=== PATIENT | male | born 1995 | race Caucasian/White ===

== ENCOUNTER 2017-10-21 06:57 | Emergency (ER) | payer OTHER ==
[~2017-10-21] VITALS: Ht 177.8 cm; Wt 65.8 kg
[2017-10-21] MEDS ORDERED: NS(*) 0.9% 1000 ML BAG 1,000 ML IV ONE ×3 (07:06→08:45)
[2017-10-21] MEDS ORDERED: ONDANSETRON 4 MG/2 ML VIAL IVP ONE ×2 (07:10→08:35)
--- NOTE | 2017-10-21 07:10 | ER Report ---
History and Physical Time Seen By MD: 07:07 Hx. of Stated Complaint: pt reports vomiting and diarrhea since 0230 this morning HPI/ROS CHIEF COMPLAINT: Nausea vomiting reported hematemesis HISTORY OF PRESENT ILLNESS: Patient is an otherwise healthy 22-year-old male comes emergency Department today after multiple episodes of vomiting he says had some blood-tinged vomit started about 2 and a 3 hours prior to presentation he said he a couple episodes of loose stool and he stated that the stool was dark. Patient states he was skiing all day yesterday had some abdominal discomfort while skiing patient also states that he had a few cocktails last night which was New 's Meghann but did not drink excessive amounts. Patient states his pain is localized to the GI tract epigastric area primarily no past medical history pain is sharp stabbing localized to the epigastric area without radiation. REVIEW OF SYSTEMS: Respiratory: No cough, no dyspnea. Cardiovascular: No chest pain, no palpitations. Gastrointestinal: Vomiting diarrhea abdominal pain Musculoskeletal: No back pain. Remainder of the 14 system rev: Yes Allergies: Coded Allergies: Penicillins (Verified Allergy, Intermediate, 10/21/17) erythromycin base (Verified Allergy, Intermediate, 10/21/17) Uncoded Allergies: cefizil (Allergy, Unknown, 10/21/17) Home Meds No Active Prescriptions or Reported Meds Reviewed Nurses Notes: Yes Old Medical Records Reviewed: Yes Constitutional Vital Sign - Last 24 Hours 10/21/17 10/21/17 10/21/17 10/21/17 07:01 07:02 07:27 07:30 Temp 98.0 Pulse 86 92 Resp 14 B/P (MAP) 122/65 (84) 122/65 119/82 (94) Pulse Ox 96 O2 Delivery Room Air 10/21/17 10/21/17 10/21/17 10/21/17 07:37 07:47 07:57 08:00 Pulse 91 88 95 B/P (MAP) 129/69 (89) Pulse Ox 100 100 96 10/21/17 10/21/17 10/21/17 10/21/17 08:10 08:30 08:35 08:40 Pulse 95 96 96 109 B/P (MAP) 142/76 (98) Pulse Ox 98 96 93 99 Intake and Output 10/21/17 10/21/17 10/22/17 15:00 23:00 07:00 Intake Total 3000 ml Balance 3000 ml Physical Exam General Appearance: The patient is alert, has no immediate need for airway protection and no current signs of toxicity. [ ] Eyes: Pupils equal and round no injection. Respiratory: Chest is non tender, lungs are clear to auscultation. Cardiac: regular rate and rhythm [ ] Gastrointestinal: Bowel examination pain to palpation of the epigastrium otherwise all other quadrants without any pain or discomfort no rebound guarding or masses normal bowel sounds no percussive tenderness in the CVA area Musculoskeletal: Neck: Neck is supple and non tender. Extremities have full range of motion and are non tender. Skin: No rashes or lesions. [ ] DIFFERENTIAL DIAGNOSIS: After history and physical exam differential diagnosis was considered for enteritis gastroenteritis gastritis Medical Decision Making Data Points Result Diagram: 10/21/17 0720 10/21/17 0720 Laboratory Hematology Test 10/21/17 07:10 10/21/17 07:20 10/21/17 07:30 Urine Color Yana Urine Clarity Slightly-cloudy Urine pH 5.0 pH (4.8-9.5) Urine Specific [place] 1.033 Urine Protein Negative mg/dL (NEGATIVE) Urine Glucose (UA) Negative mg/dL (NEGATIVE) Urine Ketones 20 mg/dL (NEGATIVE) Urine Blood Negative (NEGATIVE) Urine Nitrite Negative (NEGATIVE) Urine Bilirubin Negative (NEGATIVE) Urine Urobilinogen Negative mg/dL (0.2-1.9) Urine Leukocyte Esterase Negative (NEGATIVE) Urine RBC <1 /HPF (0-2/HPF) Urine WBC 2 /HPF (0-5/HPF) Urine Squamous Epithelial Cells Few /LPF (</=FEW) Urine Bacteria Negative /HPF (NONE-FEW) Urine Mucus Few /HPF (NONE-FEW) Red Blood Count 6.31 M/uL (4.00-5.60) Mean Corpuscular Volume 87.8 fL (80.0-96.0) Mean Corpuscular Hemoglobin 30.4 pg (26.0-33.0) Mean Corpuscular Hemoglobin Concent 34.6 g/dL (32.0-36.0) Red Cell Distribution Width 12.8 % (11.5-14.5) Mean Platelet Volume 8.4 fL (7.2-11.1) Neutrophils (%) (Auto) 89.7 % (39.4-72.5) Lymphocytes (%) (Auto) 2.7 % (17.6-49.6) Monocytes (%) (Auto) 7.0 % (4.1-12.4) Eosinophils (%) (Auto) 0.3 % (0.4-6.7) Basophils (%) (Auto) 0.3 % (0.3-1.4) Nucleated RBC Relative Count (auto) 0.1 /100WBC Neutrophils # (Auto) 12.1 K/uL (2.0-7.4) Lymphocytes # (Auto) 0.4 K/uL (1.3-3.6) Monocytes # (Auto) 0.9 K/uL (0.3-1.0) Eosinophils # (Auto) 0.0 K/uL (0.0-0.5) Basophils # (Auto) 0.0 K/uL (0.0-0.1) Nucleated RBC Absolute Count (auto) 0.02 K/uL Sodium Level 139 mmol/L (137-145) Potassium Level 3.7 mmol/L (3.5-5.0) Chloride Level 99 mmol/L (98-107) Carbon Dioxide Level 21 mmol/L (22-30) Blood Urea Nitrogen 20 mg/dl (9-21) Creatinine 1.00 mg/dl (0.66-1.25) Glomerular Filtration Rate Calc > 60.0 Random Glucose 178 mg/dl (75-110) Calcium Level 10.7 mg/dl (8.4-10.2) Total Bilirubin 1.9 mg/dl (0.2-1.3) Aspartate Amino Transf (AST/SGOT) 34 U/L (0-35) Alanine Aminotransferase (ALT/SGPT) 35 U/L (0-56) Alkaline Phosphatase 88 U/L (0-126) Total Protein 8.8 gm/dl (6.3-8.2) Albumin 5.4 g/dl (3.5-5.0) Lipase 86 U/L (23-300) Serum Alcohol < 10 mg/dl Stool Occult Blood (IFOB) Positive (NEGATIVE) Stool Leukocytes, Qualitative Positive Chemistry Test 10/21/17 07:10 10/21/17 07:20 10/21/17 07:30 Urine Color Yana Urine Clarity Slightly-cloudy Urine pH 5.0 pH (4.8-9.5) Urine Specific [place] 1.033 Urine Protein Negative mg/dL (NEGATIVE) Urine Glucose (UA) Negative mg/dL (NEGATIVE) Urine Ketones 20 mg/dL (NEGATIVE) Urine Blood Negative (NEGATIVE) Urine Nitrite Negative (NEGATIVE) Urine Bilirubin Negative (NEGATIVE) Urine Urobilinogen Negative mg/dL (0.2-1.9) Urine Leukocyte Esterase Negative (NEGATIVE) Urine RBC <1 /HPF (0-2/HPF) Urine WBC 2 /HPF (0-5/HPF) Urine Squamous Epithelial Cells Few /LPF (</=FEW) Urine Bacteria Negative /HPF (NONE-FEW) Urine Mucus Few /HPF (NONE-FEW) White Blood Count 13.5 k/uL (4.5-11.0) Red Blood Count 6.31 M/uL (4.00-5.60) Hemoglobin 19.2 g/dL (14.0-18.0) Hematocrit 55.4 % (42.0-52.0) Mean Corpuscular Volume 87.8 fL (80.0-96.0) Mean Corpuscular Hemoglobin 30.4 pg (26.0-33.0) Mean Corpuscular Hemoglobin Concent 34.6 g/dL (32.0-36.0) Red Cell Distribution Width 12.8 % (11.5-14.5) Platelet Count 271 K/uL (150-450) Mean Platelet Volume 8.4 fL (7.2-11.1) Neutrophils (%) (Auto) 89.7 % (39.4-72.5) Lymphocytes (%) (Auto) 2.7 % (17.6-49.6) Monocytes (%) (Auto) 7.0 % (4.1-12.4) Eosinophils (%) (Auto) 0.3 % (0.4-6.7) Basophils (%) (Auto) 0.3 % (0.3-1.4) Nucleated RBC Relative Count (auto) 0.1 /100WBC Neutrophils # (Auto) 12.1 K/uL (2.0-7.4) Lymphocytes # (Auto) 0.4 K/uL (1.3-3.6) Monocytes # (Auto) 0.9 K/uL (0.3-1.0) Eosinophils # (Auto) 0.0 K/uL (0.0-0.5) Basophils # (Auto) 0.0 K/uL (0.0-0.1) Nucleated RBC Absolute Count (auto) 0.02 K/uL Glomerular Filtration Rate Calc > 60.0 Calcium Level 10.7 mg/dl (8.4-10.2) Total Bilirubin 1.9 mg/dl (0.2-1.3) Aspartate Amino Transf (AST/SGOT) 34 U/L (0-35) Alanine Aminotransferase (ALT/SGPT) 35 U/L (0-56) Alkaline Phosphatase 88 U/L (0-126) Total Protein 8.8 gm/dl (6.3-8.2) Albumin 5.4 g/dl (3.5-5.0) Lipase 86 U/L (23-300) Serum Alcohol < 10 mg/dl Stool Occult Blood (IFOB) Positive (NEGATIVE) Stool Leukocytes, Qualitative Positive Toxicology Test 10/21/17 07:20 Serum Alcohol < 10 mg/dl Urinalysis Test 10/21/17 07:10 Urine Color Yana Urine Clarity Slightly-cloudy Urine pH 5.0 pH (4.8-9.5) Urine Specific [place] 1.033 Urine Protein Negative mg/dL (NEGATIVE) Urine Glucose (UA) Negative mg/dL (NEGATIVE) Urine Ketones 20 mg/dL (NEGATIVE) Urine Blood Negative (NEGATIVE) Urine Nitrite Negative (NEGATIVE) Urine Bilirubin Negative (NEGATIVE) Urine Urobilinogen Negative mg/dL (0.2-1.9) Urine Leukocyte Esterase Negative (NEGATIVE) Urine RBC <1 /HPF (0-2/HPF) Urine WBC 2 /HPF (0-5/HPF) Urine Squamous Epithelial Cells Few /LPF (</=FEW) Urine Bacteria Negative /HPF (NONE-FEW) Urine Mucus Few /HPF (NONE-FEW) Microbiology Microbiology Date/Time Source Procedure Growth Status 10/21/17 07:30 Stool Gram Stain - Final Resulted 10/21/17 07:30 Stool Stool Culture Pending Resulted ED Course/Re-evaluation ED Course ED clinical course medical decision-making 22-year-old male with blood-tinged vomit and positive white count WBCs and blood in his diarrhea he is clear infectious enteritis confirmed on CAT scan give him a dose of metronidazole he' s been allergic to start him on by mouth Flagyl as an outpatient on antiemetics and follow-up with primary care diagnosis enteritis Decision to Disposition Date: Oct 21, 2017 Decision to Disposition Time: 09:21 Depart Departure Latest Vital Signs Vital Signs Date Time Temp Pulse Resp B/P (MAP) Pulse Ox O2 Delivery O2 Flow Rate FiO2 10/21/17 08:40 109 99 10/21/17 08:30 142/76 (98) 10/21/17 07:02 98.0 14 Room Air Impression: Primary Impression: Enteritis Condition: Improved Disposition: HOME OR SELF-CARE Referrals: DINA PALACIOS MD 2 Days New Scripts Ondansetron (ZOFRAN ODT) 4 Mg Tab.rapdis 4 MG PO Q6H Y for NAUSEA, #20 TAB 0 Refills TAKE 1 TABLET BY MOUTH EVERY 12 HOURS Prov: THIEN CARRIZALES MD 10/21/17 Metronidazole (FLAGYL) 500 Mg Tablet 500 MG PO BID for 7 Days, #14 TAB Prov: THIEN CARRIZALES MD 10/21/17 Patient Instructions: Colitis (ED), Infectious Colitis (ED) THIEN CARRIZALES MD Oct 21, 2017 07:10
[2017-10-21 07:46] LABS: PLATELET COUNT, AUTOMATED 271 K/uL (150-450)
[2017-10-21] MEDS ORDERED: NS 0.9% 50 ML VIAL 50 ML ONE (08:10)
[2017-10-21] MEDS ORDERED: IOPAMIDOL 76% 75 ML INFUS BTL 75 ML ONE (08:10)
[2017-10-21] MEDS ORDERED: metroNIDAZOLE* 500MG/100ML BAG 100 ML IVPB ONE (08:40)
--- NOTE | 2017-10-21 09:09 | RADIOLOGY IMAGING REPORT ---
FACILITY: [facility] PATIENT NAME: Shadi Laws : 1995 MR: [id number] V: [id number] EXAM DATE: ORDERING PHYSICIAN: THIEN CARRIZALES TECHNOLOGIST: Location: [facility] Patient: Shadi Laws : 1995 Visit/Account:[id number] Date of Sevice: 10/21/2017 COMPUTED TOMOGRAPHY ABDOMEN AND PELVIS WITH INTRAVENOUS CONTRAST DATE OF EXAM: 10/21/2017 8:02 AM INDICATION: Diarrhea and vomiting/hematemesis. COMPARISON: None available. TECHNIQUE: Contrast enhanced abdomen and pelvis CT performed during the injection of 75 ml of Isovue 370. Sagittal and coronal reconstructions were performed. One of the following dose optimization te chniques was utilized in the performance of this exam: Automated exposure control; adjustment of the mA and/or kV according to the patient's size; or use of an iterative reconstruction technique. Spec [facility] details can be referenced in the facility's radiology CT exam operational policy. FINDINGS: Lung bases: Clear. Liver and hepatic vasculature: Normal. Gallbladder and bile ducts: Normal. Spleen: Normal. Pancreas: Normal. Adrenals: Normal. Kidneys, ureters and bladder: Normal. Retroperitoneum and aorta: Normal. GI tract, mesentery and peritoneum: There is fluid throughout much of the colon and the mid to dista l small bowel. There is likely slight wall thickening/increased enhancement, and mild pericolonic in flammation. No evidence of obstruction. No pneumatosis, pneumoperitoneum or free fluid. Mildly pro minent mesenteric lymph nodes are likely reactive. Appendectomy. Prostate and seminal vesicles: Normal. Bones and soft tissues: No acute abnormality or suspicious lesion. Mild leftward curvature of the l umbar spine. IMPRESSION: Suspected infectious or inflammatory enteritis/colitis. Report Dictated By: Maicol Otto MD at 10/21/2017 8:58 AM Report E-Signed By: Maicol Otto MD at 10/21/2017 9:04 AM WSN:[id number]
[2017-10-21] MEDS ORDERED: ONDA4TAB PO (09:23)
[2017-10-21] MEDS ORDERED: METR-1 PO (09:23)
[2017-10-21 09:47] VITALS: BP 118/62
== END 2017-10-21 10:44 | disposition home or self-care (01) ==
LOC: ER 07:21
DX: K52.9 Noninfective gastroenteritis and colitis, unspecified (principal)
CPT/HCPCS: 74177; 80320; 81001; 82274; 83630; 83690; 85025; 87045; 87205; 96361; 96365; 96375; 96376; 99284; J2405; J3490; J7030; J7050; Q9967; 82040; 82247; 82310; 82374; 82435; 82565; 82947; 84075; 84132; 84155; 84295; 84450; 84460; 84520